=== PATIENT | male | born 1985 | race Caucasian/White ===

== ENCOUNTER 2016-07-09 11:30 | Emergency (ER) | payer MEDICAID ==
[~2016-07-09] VITALS: Ht 167.6 cm; Wt 83.5 kg
[2016-07-09 11:48] VITALS: Ht 167.6 cm; Wt 83.5 kg
[2016-07-09] MEDS ORDERED: ACETAMINOPHEN 500 MG TAB PO STA (13:11)
--- NOTE | 2016-07-09 13:55 | RADRPT ---
PROCEDURE: XR Chest. CLINICAL INDICATION: Cough and fever. TECHNIQUE: Single frontal view. COMPARISON: None. FINDINGS: There is mild left basilar atelectasis or pneumonia. The lungs are otherwise clear. The heart size is normal. There is no pleural effusion. There is no pneumothorax. IMPRESSION: 1. Mild left basilar atelectasis or pneumonia. 2. Otherwise normal chest x-ray. RPTAT: QQ .Morris Langston MD, MD Date Time Electronically viewed and signed by .Morris Langston MD, MD on 07/09/2016 13:55 .R/
[2016-07-09] MEDS ORDERED: IBUP400T22 PO (14:14)
[2016-07-09] MEDS ORDERED: AZIT250T94 PO (14:14)
[2016-07-09 14:25] VITALS: BP 129/68; PULSE 77; RESP 18
--- NOTE | 2016-07-10 16:53 | ERD ---
ER Documentation Chief Complaint Date/Time DATE: 07/10/16 TIME: 16:47 Chief Complaint Flu like symptoms x 2 days. 102.3 fever. HPI This is a 31-year-old male who presents emergency department for fever, cough, body aches 2 days. Patient states he did not check his temperature at home but states he had tactile fevers and chills. Patient states he had a productive cough with clear sputum. Patient states he does have wheezing at times. No shortness of breath, difficulty breathing or chest pain. Denies abdominal pain, nausea, vomiting or diarrhea. No constipation. Patient took Advil at home. No dysuria or hematuria. ROS All systems reviewed and are negative except as per history of present illness. Medications Home Meds Active Scripts Ibuprofen* (Motrin*) 400 Mg Tab, 400 MG PO Q6, #15 TAB Prov:BRENDAN PATEL NP 07/09/16 Azithromycin* (Zithromax*) 250 Mg Tablet, 250 MG PO .ZPACK DIRECTED, #6 TAB TAKE 500 MG (2 TABS) THE FIRST DAY THEN 250 MG (1 TAB) DAYS 2-5 Prov:BRENDAN PATEL NP 07/09/16 Allergies Allergies: Coded Allergies: No Known Allergy (Unverified , 07/09/16) PMhx/Soc Medical and Surgical Hx: pt denies Medical Hx, pt denies Surgical Hx History of Surgery: No Anesthesia Reaction: No Hx Neurological Disorder: No Hx Respiratory Disorders: No Hx Cardiac Disorders: No Hx Psychiatric Problems: No Hx Miscellaneous Medical Probl: No Hx Alcohol Use: No Hx Substance Use: No Hx Tobacco Use: No Smoking Status: Never smoker Physical Exam Vitals Vital Signs Date Time Temp Pulse Resp B/P Pulse Ox O2 Delivery O2 Flow Rate FiO2 07/09/16 14:25 77 18 129/68 99 Room Air 07/09/16 11:48 102.3 111 20 139/84 96 Physical Exam Const: No acute distress, alert Head: Atraumatic Eyes: Normal Conjunctiva ENT: Normal External Ears, Nose and Mouth. No erythema or exudate posterior pharynx. TMs normal bilaterally. Neck: Full range of motion..~ No meningismus. Resp: Coarse lung sounds to auscultation bilaterally. No wheezing. No stridor or labored breathing. No intercostal retractions. Cardio: Regular rate and rhythm, no murmurs Abd: Soft, non tender, non distended. Normal bowel sounds Skin: No petechiae or rashes Back: No midline or flank tenderness Ext: No cyanosis, or edema Neur: Awake and alert Psych: Normal Mood and Affect Results 24 hrs Current Medications Medications (Trade) Dose Ordered Sig/Carlos Route PRN Reason Start Time Stop Time Status Last Admin Dose Admin Acetaminophen (Tylenol Tab) 1,000 mg ONCE STAT PO 07/09/16 13:11 07/09/16 13:13 DC 07/09/16 13:16 Procedures/MDM ED COURSE: The patient was stable throughout ED course. I kept the patient and/or family informed of laboratory and diagnostic imaging results throughout the ED course. Microbiology Influenza A negative Influenza B negative Imaging Chest x-ray Patient: NNAMDI BROWN : 1985 Age: 31 Sex: M MR #: [id number] DOS: 07/09/16 1311 Ordering MD: BRENDAN PATEL NP Location: [facility] Room/Bed: PROCEDURE: XR Chest. CLINICAL INDICATION: Cough and fever. TECHNIQUE: Single frontal view. COMPARISON: None. FINDINGS: There is mild left basilar atelectasis or pneumonia. The lungs are otherwise clear. The heart size is normal. There is no pleural effusion. There is no pneumothorax. IMPRESSION: 1. Mild left basilar atelectasis or pneumonia. 2. Otherwise normal chest x-ray. MDM: 31-year-old male presents emergency department for cough, fever and chills, body aches 2 days. Upon arrival patient has fever of 102.3F. Patient states he has productive cough with clear sputum. Has wheezing at times. On physical exam, patient has coarse lung sounds. Denies any difficulty breathing or shortness of breath. Chest x-ray reviewed by radiologist shows mild left basilar atelectasis or pneumonia. Influenza swab negative. Patient given Tylenol on the ED. Fever reduced. Patient is talking in complete sentences. No signs or symptoms of respiratory distress. Likely diagnosis is pneumonia. Low suspicion for pleural effusion, pneumothorax or influenza. Patient is appropriate for outpatient management will be given prescription for azithromycin and ibuprofen. Instructed patient to follow-up with primary care provider in the next week for reassessment. Return to ED for any high fever, chest pain, difficulty breathing, shortness breath, wheezing, vomiting, diarrhea , abdominal pain or any new or worsening symptoms. Patient verbalizes understanding. All questions answered at discharge. Departure Diagnosis: Primary Impression: Pneumonia Pneumonia type: due to unspecified organism Laterality: left Lung location : lower lobe of lung Qualified Code: J18.1 - Pneumonia of left lower lobe due to infectious organism Condition: Stable Patient Instructions: Pneumonia (Adult) Referrals: [facility], LAT[facility] YOU HAVE RECEIVED A MEDICAL SCREENING EXAM AND THE RESULTS INDICATE THAT YOU DO NOT HAVE A CONDITION THAT REQUIRES URGENT TREATMENT IN THE EMERGENCY DEPARTMENT. FURTHER EVALUATION AND TREATMENT OF YOUR CONDITION CAN WAIT UNTIL YOU ARE SEEN IN YOUR DOCTORS OFFICE WITHIN THE NEXT 1-2 DAYS. IT IS YOUR RESPONSIBILITY TO MAKE AN APPOINTMENT FOR FOLOW-UP CARE. IF YOU HAVE A PRIMARY DOCTOR --you should call your primary doctor and schedule an appointment IF YOU DO NOT HAVE A PRIMARY DOCTOR YOU CAN CALL OUR PHYSICIAN REFERRAL HOTLINE AT IF YOU CAN NOT AFFORD TO SEE A PHYSICIAN YOU CAN CHOSE FROM THE FOLLOWING [facility] [address] [facility] [address] [facility] [address] [facility] [address] [facility] [address] [facility]. [facility] [address] [facility]. [facility] YOU HAVE RECEIVED A MEDICAL SCREENING EXAM AND THE RESULTS INDICATE THAT YOU DO NOT HAVE A CONDITION THAT REQUIRES URGENT TREATMENT IN THE EMERGENCY DEPARTMENT. FURTHER EVALUATION AND TREATMENT OF YOUR CONDITION CAN WAIT UNTIL YOU ARE SEEN IN YOUR DOCTORS OFFICE WITHIN THE NEXT 1-2 DAYS. IT IS YOUR RESPONSIBILITY TO MAKE AN APPOINTMENT FOR FOLOW-UP CARE. IF YOU HAVE A PRIMARY DOCTOR --you should call your primary doctor and schedule and appointment IF YOU DO NOT HAVE A PRIMARY DOCTOR YOU CAN CALL OUR PHYSICIAN REFERRAL HOTLINE AT . IF YOU CAN NOT AFFORD TO SEE A PHYSICIAN YOU CAN CHOSE FROM THE FOLLOWING [facility]: [facility] [address] [place] [address] [facility] [address] [place] [address] [facility] [address] [place] [address] Additional Instructions: Return to ED for any high fever, chest pain, difficulty breathing, shortness breath, wheezing, vomiting, diarrhea, abdominal pain or any new or worsening symptoms. Call your primary care doctor TOMORROW for an appointment during the next 2-3 days.See the doctor sooner or return here if your condition worsens before your appointment time. BRENDAN PATEL NP Jul 10, 2016 16:52
== END 2016-07-09 14:26 | disposition home or self-care (01) ==
LOC: FTE 11:30
DX: J18.1 Lobar pneumonia, unspecified organism (principal)
CPT/HCPCS: 71010; 87400; Z7502; Z7610

== ENCOUNTER 2017-07-26 00:43 | Emergency (ER) | END 2017-07-26 04:13 | disposition home or self-care (01) ==